=== PATIENT | female | born 1975 | race Caucasian/White ===

== ENCOUNTER 2022-12-22 09:00 | Emergency (ER) | payer MEDICAID ==
[~2022-12-22] VITALS: Wt 79.8 kg
[2022-12-22] MEDS ORDERED: DECADRON4 MG PO (10:35)
[2022-12-22] MEDS ORDERED: CYCLOBENZAPRINE10 MG PO (10:37)
[2022-12-22] MEDS ORDERED: Motrin,Rufen800 MG PO (10:38)
== END 2022-12-22 11:22 | disposition home or self-care (01) ==
LOC: ED 09:00
DX: M53.3 Sacrococcygeal disorders, not elsewhere classified (principal); M12.011 Chronic postrheumatic arthropathy [Jaccoud], right shoulder; Z88.0 Allergy status to penicillin; Z98.51 Tubal ligation status

== ENCOUNTER 2023-05-22 07:16 | Emergency (ER) | payer OTHER ==
[~2023-05-22] VITALS: Ht 160 cm; Wt 72.6 kg
[~2023-05-22 07:16] MED LIST: CYCLOBENZAPRINE10 MG PO; DECADRON4 MG PO; Motrin,Rufen800 MG PO
[2023-05-22] MEDS ORDERED: NORVASC10 MG PO (07:27)
[2023-05-22] MEDS ORDERED: WELLBUTRIN SR100 MG PO (07:29)
[2023-05-22] MEDS ORDERED: MELOXICAM15 MG PO (07:53)
== END 2023-05-22 07:48 | disposition home or self-care (01) ==
LOC: ED 07:16
DX: S93.401A Sprain of unspecified ligament of right ankle, initial encounter (principal); I10 Essential (primary) hypertension; F41.9 Anxiety disorder, unspecified; F32.A Depression, unspecified; Z88.0 Allergy status to penicillin; Z98.890 Other specified postprocedural states; Z98.51 Tubal ligation status; X50.1XXA Overexertion from prolonged static or awkward postures, initial encounter; Y93.89 Activity, other specified; Y92.89 Other specified places as the place of occurrence of the external cause; Y99.8 Other external cause status

== ENCOUNTER 2023-09-10 15:08 | Emergency (ER) | payer SELFPAY ==
[~2023-09-10] VITALS: Ht 160 cm; Wt 74.8 kg
[~2023-09-10 15:08] MED LIST changes: +MELOXICAM15 MG PO; +NORVASC10 MG PO; +WELLBUTRIN SR100 MG PO
[2023-09-10 16:32] LABS: BASO # 0.1 10*3/uL (0.0-0.1); BASO % 0.5 % (0.0-1.0); EOS # 0.2 10*3/uL (0.0-0.4); EOS % 1.7 % (1.0-4.0); HEMATOCRIT 43.6 % (37.0-47.0); LYMPH # 2.7 10*3/uL (1.3-4.4); LYMPH % 28.7 % (27.0-41.0); MEAN CELL VOLUME 88.3 fl (81.0-99.0); MEAN CORPUSCULAR HGB 31.2 pg (27.0-31.0); MEAN CORPUSCULAR HGB CONC 35.3 g/dl (33.0-37.0); MEAN PLATELET VOLUME 10.9 fl (9.6-12.3); MONO # 0.7 10*3/uL (0.1-1.0); MONO % 6.9 % (3.0-9.0); NEUT # 5.9 10*3/uL (2.3-7.9); NEUT % 61.4 % (47.0-73.0); PLATELET COUNT AUTOMATED 228 10*3/uL (130-400); RED BLOOD COUNT 4.94 10*6/uL (4.10-5.10); RED CELL DISTRI WIDTH 12.1 % (0-14.5); WHITE BLOOD COUNT 9.5 10*3/uL (4.8-10.8)
[2023-09-10 16:52] LABS: ALKALINE PHOSPHATASE 131 U/L (46-116); BUN 11 mg/dl (9-23); CHLORIDE 104 mmol/L (98-107); POTASSIUM 3.7 mmol/L (3.4-5.1); SGPT/ALT 39 U/L (10-49); TOTAL PROTEIN 6.8 gm/dL (6.0-8.0)
[2023-09-10] MEDS ORDERED: PREDNISONE50 MG PO (18:05)
== END 2023-09-10 18:22 | disposition home or self-care (01) ==
LOC: ED 15:08
PROVIDERS: Nurse Practitioner Family
DX: R51.9 Headache, unspecified (principal); R09.81 Nasal congestion; M54.2 Cervicalgia; F32.A Depression, unspecified; I10 Essential (primary) hypertension; F41.9 Anxiety disorder, unspecified; Z88.0 Allergy status to penicillin; Z98.890 Other specified postprocedural states; Z98.51 Tubal ligation status; Z20.822 Contact with and (suspected) exposure to COVID-19

== ENCOUNTER 2024-04-11 16:29 | Emergency (ER) | payer OTHER ==
[~2024-04-11] VITALS: Ht 160 cm; Wt 79.4 kg
[~2024-04-11 16:29] MED LIST changes: +PREDNISONE50 MG PO
[2024-04-11] MEDS ORDERED: CLINDAMYCIN HCL 300 MG CAPSULE PO ONE (16:55)
[2024-04-11] MEDS ORDERED: CLINDAMYCIN HC300 MG PO (16:57)
== END 2024-04-11 17:12 | disposition home or self-care (01) ==
LOC: ED 16:29
DX: S61.230A Puncture wound without foreign body of right index finger without damage to nail, initial encounter (principal); F32.A Depression, unspecified; I10 Essential (primary) hypertension; F41.9 Anxiety disorder, unspecified; Z88.0 Allergy status to penicillin; Z98.51 Tubal ligation status; W54.0XXA Bitten by dog, initial encounter; Y93.89 Activity, other specified; Y92.009 Unspecified place in unspecified non-institutional (private) residence as the place of occurrence of the external cause; Y99.8 Other external cause status

== ENCOUNTER 2024-04-26 19:06 | Emergency (ER) | payer OTHER ==
[~2024-04-26] VITALS: Wt 79.4 kg
[~2024-04-26 19:06] MED LIST changes: +CLINDAMYCIN HC300 MG PO
[2024-04-26] MEDS ORDERED: BUPROPION HYDR150 M3 PO (19:31)
[2024-04-26] MEDS ORDERED: ATORVASTATIN CA20 M1 PO (19:31)
[2024-04-26] MEDS ORDERED: ESCITALOPRAM OX20 MG PO (19:32)
[2024-04-26] MEDS ORDERED: SPIRONOLACTONE100 MG PO (19:32)
[2024-04-26] MEDS ORDERED: Ketorolac Tromethamine 60 MG/2 ML VIAL IM ONE (20:05)
[2024-04-26] MEDS ORDERED: NAPROXEN250 MG PO (20:06)
== END 2024-04-26 20:30 | disposition home or self-care (01) ==
LOC: ED 19:06
DX: M25.562 Pain in left knee (principal); F32.A Depression, unspecified; I10 Essential (primary) hypertension; F41.9 Anxiety disorder, unspecified; Z88.0 Allergy status to penicillin; Z98.51 Tubal ligation status; Z98.890 Other specified postprocedural states